=== PATIENT | male | born 1950 | race Caucasian/White ===

== ENCOUNTER 2019-01-04 15:39 | Emergency (ER) | payer MEDICARE ==
[~2019-01-04] VITALS: Ht 180.3 cm; Wt 87.7 kg
[2019-01-04] MEDS ORDERED: LANTUS100 UNIT/M SC (16:19)
[2019-01-04] MEDS ORDERED: LISINOPRIL20 MG PO (16:19)
[2019-01-04] MEDS ORDERED: SYMBICORT1 AE1 IN (16:20)
[2019-01-04] MEDS ORDERED: PROVENTIL HFA IN (16:21)
[2019-01-04] MEDS ORDERED: LOPRESSOR50 M1 PO (16:23)
[2019-01-04] MEDS ORDERED: METFORMIN HYD1000 MG PO (16:24)
[2019-01-04 18:00] VITALS: BP 138/80
== END 2019-01-04 18:00 | disposition home or self-care (01) ==
LOC: ED 15:39
DX: S89.92XA Unspecified injury of left lower leg, initial encounter (principal); E11.9 Type 2 diabetes mellitus without complications; I10 Essential (primary) hypertension; J45.909 Unspecified asthma, uncomplicated; X50.9XXA Other and unspecified overexertion or strenuous movements or postures, initial encounter; Y93.41 Activity, dancing
CPT/HCPCS: L1830

== ENCOUNTER 2022-02-06 21:10 | Emergency (ER) | payer MEDICARE ==
[~2022-02-06] VITALS: Ht 180.3 cm; Wt 100.0 kg
[2022-02-06] VITALS (10 sets, daily range): BP systolic 164–208; BP diastolic 81–100
[~2022-02-06 21:10] MED LIST: LANTUS100 UNIT/M SC; LISINOPRIL20 MG PO; LOPRESSOR50 M1 PO; METFORMIN HYD1000 MG PO; PROVENTIL HFA IN; SYMBICORT1 AE1 IN
[2022-02-06 21:45] LABS: HEMATOCRIT 35.1 % (39.0-50.0); HEMOGLOBIN 11.8 g/dl (14.0-18.0); IMMATURE GRANULOCYTES 0.3 % (0.0-5.0); MEAN CELL VOLUME 92.6 fL CALC (80.0-100.0); MEAN CORPUSCULAR HGB 31.1 pG CALC (26.0-32.0); MEAN CORPUSCULAR HGB CONC 33.6 g/dL CAL (32.0-36.0); NEUT# 8.02 thou/uL (1.82-7.42); RED BLOOD COUNT 3.79 mill/uL (4.70-6.10); RED CELL DISTRI WIDTH 12.7 % (11.5-15.5)
[2022-02-06 21:50] LABS: URINE BILIRUBIN - DIPSTICK NEGATIVE (NEGATIVE); URINE BLOOD DIPSTICK NEGATIVE (NEGATIVE); URINE COLOR YELLOW; URINE GLUCOSE - DIPSTICK 250 mg/dL (NEGATIVE); URINE KETONE NEGATIVE (NEGATIVE); URINE LEUK ESTERASE NEGATIVE (NEGATIVE); URINE PROTEIN - DIPSTICK 100 mg/dL (NEG-TRACE); URINE SPECIFIC GRAVITY 1.025; URINE UROBILINOGEN - DIPSTICK 0.2 E.U./dL (0.2)
[2022-02-06 21:54] LABS: URINE NITRITE - DIPSTICK NEGATIVE (Negative)
[2022-02-06 21:58] LABS: ALKALINE PHOSPHATASE 102 u/l (38-126); AMYLASE 77 u/l (30-110); ANION GAP 15 (6-22 (CALC)); BILIRUBIN, TOTAL 0.3 mg/dL (0.0-1.4); BUN 23 mg/dL (8-23); BUN/CREATININE RATIO 18 (12-20 (CALC)); CARBON DIOXIDE 22 mmol/l (22-30); CHLORIDE 105 mmol/l (95-108); CREATININE 1.3 mg/dL (0.7-1.3); GFR 54 ML/MIN (>=60 (CALC)); GFR FOR AFR.AMER. > 60 ML/MIN (>=60 (CALC)); LIPASE 36 u/l (23-300); POTASSIUM 4.6 mmol/l (3.5-5.1); SGOT/AST 20 u/l (19-48); SODIUM 138 mmol/l (137-146); TOTAL PROTEIN 6.8 g/dL (6.3-8.2)
[2022-02-06 22:10] LABS: MYOGLOBIN 42 ng/mL (0 - 121)
[2022-02-06 22:11] LABS: URINE SQUAMOUS EPITHELIAL CELL FEW EPI/hpf (0-FEW); URINE WBC 0-2 WBC/hpf (0-5)
[2022-02-06] MEDS ORDERED: ONDANSETRON4 MG PO (23:53)
[2022-02-06] MEDS ORDERED: ZPAK PO (23:53)
[2022-02-06] MEDS ORDERED: FIORICET PO (23:53)
[2022-02-07 00:04] VITALS: BP 164/86
== END 2022-02-07 00:20 | disposition home or self-care (01) ==
LOC: ED 21:10
PROVIDERS: Emergency Medicine
DX: J32.9 Chronic sinusitis, unspecified (principal); I10 Essential (primary) hypertension; E11.9 Type 2 diabetes mellitus without complications; J45.909 Unspecified asthma, uncomplicated; Z79.84 Long term (current) use of oral hypoglycemic drugs; Z79.4 Long term (current) use of insulin